=== PATIENT | male | born 2000 | race Caucasian/White ===

== ENCOUNTER 2024-05-19 00:36 | Emergency (ER) | payer MEDICAID ==
[~2024-05-19] VITALS: Ht 170.2 cm; Wt 72.7 kg
[2024-05-19] MEDS: acetaminophen 1,000mg/100ml IV 100 ML IV ONE (01:20)
[2024-05-19] MEDS: TETanus/Pertussis (Acell)/Diphther VAC/PF (Tdap-Adult) 0.5ml syringe IMVAC ONE (02:14)
[2024-05-19 02:48] VITALS: BP 117/87; PULSE 89; RESP 11; TEMP 98; O2SAT 96
== END 2024-05-19 02:53 | disposition home or self-care (01) ==
LOC: ER 00:37
DX: S09.8XXA Other specified injuries of head, initial encounter (principal); S00.03XA Contusion of scalp, initial encounter; F17.200 Nicotine dependence, unspecified, uncomplicated; Y08.89XA Assault by other specified means, initial encounter; Y93.89 Activity, other specified; Y92.89 Other specified places as the place of occurrence of the external cause; Y99.8 Other external cause status
CPT/HCPCS: 70450; 71045; 90471; 90715; 96365; 99285; J0131; A6449